=== PATIENT | female | born 1960 | race Caucasian/White ===

== ENCOUNTER 2022-08-19 08:00 | Inpatient (IN) ==
[~2022-08-19 08:00] MED LIST: Buffered Lidocaine 1% SYRIN 1 ml INTRADERM ONE; HYDROmorphone 1 MG/1 ML SYRINGE IV PRN; Naloxone 0.4 mg VIAL 0.4 mg/ml 1 ml VIAL IV PRN; Prochlorperazine 5 mg/ml 2 ml VIAL (10 mg) IV PRN
[2022-08-19] MEDS ORDERED: ceFAZolin 2 GM PREMIX 2 GM/50 ML BAG ONE (08:09)
[2022-08-19] MEDS: Lactated Ringers 1000 ml BAG 1,000 ML IV SCH ×2 (08:31→15:51)
[2022-08-19] MEDS ORDERED: Midazolam 2 mg/2 ml VIAL 1 mg/ml 2 ml VIAL (2 mg) ONE (09:39)
[2022-08-19] MEDS ORDERED: fentaNYL 100 mcg/2 ml 50 MCG/ML VIAL ONE (09:39)
[2022-08-19] MEDS ORDERED: Lidocaine 2% PF 5 ML VIAL ONE (09:41)
[2022-08-19] MEDS ORDERED: Phenylephrine IV 10 MG/ML 1 ml VIAL ONE (09:41)
[2022-08-19] MEDS ORDERED: Ondansetron 4 mg VIAL 2 MG/ML 2 ml VIAL ONE (11:56)
[2022-08-19] MEDS ORDERED: Dexamethasone IV 4 MG/ML VIAL 1 ml VIAL ONE (11:56)
[2022-08-19] MEDS ORDERED: Ondansetron 4 mg VIAL 2 MG/ML 2 ml VIAL IV PRN (12:26)
[2022-08-19] MEDS ORDERED: Lactulose 30 ml UDC PO PRN (12:26)
[2022-08-19] MEDS ORDERED: Ondansetron ODT 4 mg TAB 4 MG TAB PO PRN (12:26)
[2022-08-19] MEDS ORDERED: Magnesium Hydroxide LIQ 30 ML UDC PO PRN (12:26)
[2022-08-19] MEDS ORDERED: Morphine 2 MG/ML SYRINGE IV PRN (12:26)
[2022-08-19] MEDS ORDERED: Propofol 10 MG/ML 20 ML BTL ONE (12:43)
[2022-08-19] MEDS ORDERED: Lactated Ringers 1000 ml BAG 1,000 ML IV SCH (13:00)
[2022-08-19] MEDS ORDERED: Prochlorperazine 5 mg/ml 2 ml VIAL (10 mg) ONE (14:10)
[2022-08-19 17:58] VITALS: BP 144/89
[2022-08-19] MEDS ORDERED: ceFAZolin 1 GM ADVAN 1 GM in NS 0.9% 50 ML 50 ML IVPB SCH (20:00)
[2022-08-19] MEDS ORDERED: Magnesium Hydroxide LIQ 30 ML UDC PO SCH (21:00)
[2022-08-20] MEDS ORDERED: Vitamin THERAPEUTIC TAB PO SCH (09:00)
== END 2022-08-19 21:17 | disposition home or self-care (01) | DRG 301 ==
LOC: AA 08:00 → SSU 15:56
PROVIDERS: ADMIT Orthopaedic Surgery Adult Reconstructive Orthopaedic Surgery; ATTEND Orthopaedic Surgery Adult Reconstructive Orthopaedic Surgery